=== PATIENT | female | born 1975 | race African-American/Black ===

== ENCOUNTER 2017-10-21 08:01 | Emergency (ER) | payer OTHER ==
[~2017-10-21] VITALS: Ht 170.2 cm; Wt 94.8 kg
[2017-10-21] MEDS ORDERED: TUSSIONEX PENN115 ML PO (09:15)
[2017-10-21] MEDS ORDERED: AMOXICILLIN 50500 M1 PO (09:23)
[2017-10-21 09:36] VITALS: BP 132/82
== END 2017-10-21 09:38 | disposition home or self-care (01) ==
LOC: ER 08:01
DX: H66.92 Otitis media, unspecified, left ear (principal); J06.9 Acute upper respiratory infection, unspecified; J04.0 Acute laryngitis

== ENCOUNTER 2018-06-07 12:39 | Emergency (ER) | payer OTHER ==
[~2018-06-07] VITALS: Ht 170.2 cm; Wt 94.8 kg
[~2018-06-07 12:39] MED LIST: AMOXICILLIN 50500 M1 PO; TUSSIONEX PENN115 ML PO
[2018-06-07 14:10] VITALS: BP 121/82
[2018-06-07] MEDS ORDERED: PERCOCET PO (14:13)
[2018-06-07] MEDS ORDERED: MOBIC15 MG PO (14:13)
== END 2018-06-07 14:38 | disposition home or self-care (01) ==
LOC: ER 12:39
DX: M54.41 Lumbago with sciatica, right side (principal); M79.671 Pain in right foot; E03.9 Hypothyroidism, unspecified; Z88.6 Allergy status to analgesic agent

== ENCOUNTER 2018-08-07 08:33 | Emergency (ER) | payer OTHER ==
[~2018-08-07] VITALS: Ht 170.2 cm; Wt 95.3 kg
[~2018-08-07 08:33] MED LIST changes: +MOBIC15 MG PO; +PERCOCET PO
[2018-08-07] MEDS ORDERED: AMOXICILLIN 50500 M1 PO (09:49)
[2018-08-07] MEDS ORDERED: NORCO 5-325 TA1 EACH PO (09:49)
[2018-08-07 10:25] VITALS: BP 159/78
== END 2018-08-07 10:26 | disposition home or self-care (01) ==
LOC: ER 08:33
DX: K04.7 Periapical abscess without sinus (principal); E03.9 Hypothyroidism, unspecified; Z88.6 Allergy status to analgesic agent

== ENCOUNTER 2020-09-25 15:02 | Emergency (ER) | payer OTHER ==
[~2020-09-25] VITALS: Ht 170.2 cm; Wt 90.7 kg
[~2020-09-25 15:02] MED LIST changes: +NORCO 5-325 TA1 EACH PO
[2020-09-25 15:18] LABS: URINE BILIRUBIN NEGATIVE (Negative); URINE BLOOD NEGATIVE (Negative); URINE CLARITY CLEAR; URINE COLOR YELLOW; URINE GLUCOSE-RANDOM* NEGATIVE (Negative); URINE KETONES NEGATIVE (Negative); URINE LEUKOCYTES-REFLEX NEGATIVE (Negative); URINE NITRITE-REFLEX NEGATIVE (Negative); URINE PROTEIN (DIPSTICK) NEGATIVE (Negative); URINE SPECIFIC GRAVITY <= 1.005 (1.005-1.035); URINE UROBILINOGEN 0.2 E.U./dl (0.2-1.0)
[2020-09-25 16:22] LABS: HEMATOCRIT 36.6 % (37.0-47.0); HEMOGLOBIN 11.8 gm/dL (12.0-15.0); MCH 28.1 pg (26.0-34.0); MCHC 32.4 g/dL (28.0-37.0); MCV 86.9 fL (80.0-100.0); PLATELET COUNT 272 thou/uL (150-400); RBC 4.21 mil/uL (4.20-5.00); RDW 15.5 % (10.5-14.5)
[2020-09-25 16:23] LABS: CALCIUM 9.2 mg/dL (8.5-10.1); CREATININE 0.7 mg/dL (0.6-1.0); POTASSIUM 3.6 mmol/L (3.5-5.1)
[2020-09-25 16:29] LABS: ALBUMIN 3.7 g/dL (3.4-5.0); TOTAL BILIRUBIN 0.4 mg/dL (0.2-1.0); TOTAL PROTEIN 7.2 g/dL (6.4-8.2)
[2020-09-25 17:00] LABS: ABSOLUTE NEUTROPHILS 4.1 thou/uL (1.4-8.2)
[2020-09-25 17:01] LABS: LARGE PLATELETS FEW; SCHISTOCYTES RARE
[2020-09-25] MEDS ORDERED: ONDANSETRON HCL4 M2 PO (18:47)
[2020-09-25] MEDS ORDERED: NORCO 10-325 T1 EACH PO (18:47)
[2020-09-25 19:10] VITALS: BP 138/80
--- NOTE | 2020-09-26 05:50 | EKG ---
[address] [address] ELECTROCARDIOGRAM REPORT Name: KODI PEÑALOZA [id number] Admission: 09/25/20 Attend Phys: Discharge: 09/25/20 Date of : 79 Report #: [id number] [facility] ED Test Date: 2020-09-25 Test Time: 16:02:10 Pat Name: KODI PEÑALOZA Department: Room: Gender: F [employer]: : 1975 Requested By: Aury Munoz Order Number: [id number] MD: Trevor Perez Measurements Intervals Kimper Rate: 78 P: 40 OR: 134 QRS: -16 QRSD: 88 T: 53 QT: 390 QTc: 445 Interpretive Statements Sinus rhythm Borderline left axis deviation No previous ECG available for comparison Electronically Signed On 09-26-2020 5:50:41 CDT by Trevor Perez [email or web address] <ELECTRONICALLY SIGNED> By: Trevor Perez MD, [facility] 09/26/20 0550 1602 1602 Trevor Perez MD, FACC /EPI
== END 2020-09-25 19:11 | disposition home or self-care (01) ==
LOC: ER 15:02
PROVIDERS: Physician Assistant
DX: N83.202 Unspecified ovarian cyst, left side (principal); N83.201 Unspecified ovarian cyst, right side; E03.9 Hypothyroidism, unspecified; Z88.6 Allergy status to analgesic agent; Z98.51 Tubal ligation status; Z79.899 Other long term (current) drug therapy

== ENCOUNTER 2021-04-02 12:45 | Emergency (ER) | payer OTHER ==
[~2021-04-02] VITALS: Ht 170.2 cm; Wt 89.8 kg
[~2021-04-02 12:45] MED LIST changes: +NORCO 10-325 T1 EACH PO; +ONDANSETRON HCL4 M2 PO
[2021-04-02 13:26] LABS: BASOPHILS 1.3 % (0.0-2.0); EOSINOPHILS 2.7 % (0.0-3.0); HEMATOCRIT 34.9 % (37.0-47.0); HEMOGLOBIN 11.5 gm/dL (12.0-15.0); LYMPHOCYTES 37.1 % (24.0-44.0); MCH 28.2 pg (26.0-34.0); MCV 85.5 fL (80.0-100.0); MONOCYTES 6.2 % (1.0-8.0); PLATELET COUNT 304 thou/uL (150-400); POLYS 52.7 % (36.0-66.0); RBC 4.08 mil/uL (4.20-5.00); RDW 15.1 % (10.5-14.5); WBC 5.8 thou/uL (4.0-11.0)
[2021-04-02 13:41] LABS: CREATININE 0.7 mg/dL (0.6-1.0); POTASSIUM 3.7 mmol/L (3.5-5.1)
[2021-04-02] MEDS ORDERED: MEDROLDOSEPACK PO (13:46)
[2021-04-02 13:56] VITALS: BP 136/89
== END 2021-04-02 13:56 | disposition home or self-care (01) ==
LOC: ER 12:45
PROVIDERS: Nurse Practitioner
DX: R21 Rash and other nonspecific skin eruption (principal); E03.9 Hypothyroidism, unspecified; Z79.899 Other long term (current) drug therapy; Z79.891 Long term (current) use of opiate analgesic; Z88.8 Allergy status to other drugs, medicaments and biological substances; Z88.6 Allergy status to analgesic agent